=== PATIENT | female | born 1970 | race Caucasian/White ===

== ENCOUNTER 2017-05-12 07:05 | Day surgery (SDC) | payer OTHER ==
[~2017-05-12] VITALS: Ht 167.6 cm; Wt 120.2 kg
[~2017-05-12 07:05] MED LIST: 0.9% Sodium Chloride 1,000 ML IV SCH; DULO60CA42 PO; ESOM40CA41 PO; HYDR-4003 PO; LACT1CAP75 PO; LISI1TAB7 PO; RANI150C4 PO; Sodium Chloride LOK Flush 10 mL Syringe IV PRN; fentaNYL-PF 50 mCg/mL 2 mL Inj IVPUSH PRN
[2017-05-12 07:24] VITALS: BP 151/98; PULSE 102; O2SAT 96
[2017-05-12 08:19] VITALS: BP 108/82; PULSE 87; RESP 16; O2SAT 96
[2017-05-12 08:29] VITALS: BP 102/71; PULSE 82; RESP 16; O2SAT 97
[2017-05-12 08:38] VITALS: BP 102/60; PULSE 94; RESP 16; O2SAT 96
--- NOTE | 2017-05-12 08:56 | ENDO ---
[address] [address] ENDOSCOPY PROCEDURE PATIENT: MASSIMO ROGERS : 1970 MR#: [id number] ADMIT: 05/12/2017 JOB ID: [id number] DATE: 05/12/2017 TYPE OF OPERATION: 1. Esophagogastroduodenoscopy with biopsy. 2. Colonoscopy with biopsy. PREOPERATIVE DIAGNOSIS(ES): Gastroesophageal reflux disease and bloody diarrhea. POSTOPERATIVE DIAGNOSIS(ES): 1. Mild nonerosive gastritis status post biopsy. 2. Normal colonoscopy status post biopsy. ANESTHESIA: 1. Fentanyl 150 mcg. 2. Versed 7 mg IV administered. COMPLICATIONS: None. BLOOD LOSS: Minimal. DESCRIPTION OF PROCEDURE: After risks and benefits were explained to the patient, informed consent was obtained. After anesthesia administered, an upper endoscope was then inserted into the mouth intubating to esophagus, stomach, second portion of duodenum. Mucosa carefully examined. After procedure was done, the scope withdrawn and procedure terminated. Colonoscope was then inserted per rectum to the cecum. Mucosa carefully examined. Prep of the patient was excellent. After the procedure was done, the scope withdrawn and procedure terminated. FINDINGS: Upon inspection of the esophagus, the esophagus was normal without masses, ulcers or lesions. Z-line located 40 cm from incisors. Upon entering stomach, the stomach showed mild nonerosive gastritis. There were no masses, ulcers or lesions that were seen. Retroflexion was normal. Duodenal bulb, first and second portion normal. Biopsies taken from the antrum and body of the stomach and distal esophagus. Upon inspection of the anus, no masses, hemorrhoids, ulcers, fissures that were seen. Throughout the entire examination, there were no polyps, masses or lesions. The mucosa appeared normal with good vasculature. Biopsies taken at terminal ileum and random colon. Retroflexion was normal. IMPRESSION: 1. Mild nonerosive gastritis status post biopsy. 2. Normal colonoscopy status post biopsy. RECOMMENDATION: 1. Await pathology results. 2. Followup in GI clinic as needed.
--- NOTE | 2017-05-15 14:40 | PATH ---
SURGICAL PATHOLOGY Attending Physician:Dung Gregg MD CASE STATUS: Signed Out PATIENT NAME: MASSIMO ROGERS PID: [id number] : 1970 DATE COLLECTED:05/12/2017 19:37 SPECIMEN: 1: Stomach, Antrum, Biopsy 2: Gastric, Biopsy 3: Esophagus, Biopsy 4: Ileum, Biopsy 5: Colon, Biopsy CLINICAL HISTORY: R/O H.PYLORI 1). GASTRIC ANTRUM 2). GASTRIC BODY 3). DISTAL ESOPHAGUS 4). TERMINAL ILEUM 5). RANDOM COLON FINAL DIAGNOSIS: 1.GASTRIC ANTRUM BIOPSIES: MILD CHRONIC GASTRITIS INVOLVING ANTRAL MUCOSA. Negative for evidence of Helicobacter on H&E stain. Negative for intestinal metaplasia. Negative for dysplasia and malignancy. 2.GASTRIC BODY BIOPSIES: BENIGN FUNDIC GLAND POLYPS. Negative for evidence of Helicobacter on H&E stain. Negative for intestinal metaplasia. Negative for dysplasia and malignancy. 3.DISTAL ESOPHAGUS BIOPSIES: FRAGMENTS OF SQUAMOUS EPITHELIUM, NEGATIVE FOR ATYPIA. NO GASTRIC-TYPE EPITHELIUM PRESENT. Negative for intraepithelial eosinophils. 4.TERMINAL ILEUM BIOPSIES: SUPERFICIAL FRAGMENTS OF SMALL BOWEL WITH FOCAL MUCOSAL SCARRING CONSISTENT WITH PREVIOUS MUCOSAL INJURY. Negative for granulomas. Negative for significant inflammation, dysplasia and malignancy. 5.RANDOM COLON BIOPSIES: FRAGMENTS OF NORMAL-APPEARING COLON MUCOSA. Negative for significant architectural distortion. Negative for significant inflammation, dysplasia and malignancy. ICD10 K31.7 GROSS DESCRIPTION: The specimens are received in formalin, labeled with the patient's name, and sublabeled as the following: (1) gastric antrum + r/o H. pylori; (2) gastric body; (3) distal esophagus; (4) of terminal ileum; (5) random colon. (1) The specimen consists of multiple fragments of martinez-white glistening rubbery semitranslucent tissue (0.6 x 0.3 x 0.2 cm in aggregate). Section code: (1A) tissue. Specimen entirely submitted. (2) The specimen consists of multiple fragments of martinez-white glistening rubbery semitranslucent tissue (0.5 x 0.3 x 0.2 cm in aggregate). Section code: (2A) tissue. Specimen entirely submitted. (3) The specimen consists of multiple fragments of lema-white glistening translucent tissue (0.5 x 0.3 x <0.1 cm in aggregate). Section code: (3A) tissue. Specimen entirely submitted. (4) The specimen consists of multiple fragments of lema-white glistening translucent tissue (0.4 x 0.2 <0.1 cm in aggregate). Section code: (4A) tissue. Specimen entirely submitted. (5) The specimen consists of multiple fragments of martinez-white glistening rubbery semitranslucent tissue (0.9 x 0.5 x 0.2 cm in aggregate). Section code: (5A) tissue. Specimen entirely submitted. 05/14/17 JM MICRO DESCRIPTION: See diagnosis. ICD-9 CODES: CPT CODES: 1: 11483 2: 51049 3: 12336 4: 13484 5: 11573 Electronically Signed Out Dat Bhakta MD [facility] [address], [place] [address] Technical component performed at [facility], [address] [place] [address] Ave[address], [place], [address]
== END 2017-05-12 23:59 | disposition home or self-care (01) ==
LOC: END 07:05
PROVIDERS: ATTEND Internal Medicine Gastroenterology
DX: R19.7 Diarrhea, unspecified (principal); K21.9 Gastro-esophageal reflux disease without esophagitis; Z87.19 Personal history of other diseases of the digestive system; G47.33 Obstructive sleep apnea (adult) (pediatric); I10 Essential (primary) hypertension; M79.7 Fibromyalgia; K29.50 Unspecified chronic gastritis without bleeding
CPT/HCPCS: 43239; 45380; 99153; G0500; J2250; J3010; J7030